=== PATIENT | male | born 1960 | race Caucasian/White ===

== ENCOUNTER 2020-05-23 20:27 | Inpatient (IN) | payer OTHER ==
[2020-05-23] MEDS ORDERED: LACTATED RINGERS SOLUTION 1000 ML INFUS.BAG IV ONE ×2 (20:49→22:25)
[2020-05-23 21:55] LABS: BASO % 0.3 % (0-2.0); HEMATOCRIT 52.2 % (35.4-49); HEMOGLOBIN 17.3 GM/dL (11.7-16.9); MCH 29.5 pg (25.7-33.7); MCHC 33.1 g/dl (32.0-35.9); MONO % 7.7 % (3.8-10.2); PLATELET COUNT 118 K/MM3 (134-434); RBC 5.86 M/mm3 (4.00-5.60); RDW 13.2 % (11.9-15.9); WHITE BLOOD COUNT 4.2 K/mm3 (4.0-10.0)
[2020-05-23 21:57] LABS: CHLORIDE 102 mmol/L (98-107); POTASSIUM 4.1 mmol/L (3.5-5.1); SODIUM 136 mmol/L (136-145)
[2020-05-23 21:59] LABS: CALCIUM 7.6 mg/dL (8.5-10.1)
[2020-05-23 22:00] LABS: ANION GAP 8 MMOL/L (8-16); BLOOD UREA NITROGEN 23.2 mg/dL (7-18); CO2 26 mmol/L (21-32); GLUCOSE,RANDOM 139 mg/dL (74-106)
[2020-05-23 22:03] LABS: CREATININE 1.7 mg/dL (0.55-1.3); SGOT/AST 37 U/L (15-37); SGPT/ALT 33 U/L (13-61)
[2020-05-23 22:04] LABS: TOT PROT 6.5 g/dl (6.4-8.2)
[2020-05-23 22:06] LABS: ALK PHOS 45 U/L (45-117)
[2020-05-23] MEDS ORDERED: DEXAMETHASONE SOD PHOSPHATE 10 MG/1 ML VIAL IVPUSH ONE (22:08)
[2020-05-23 22:24] LABS: VENOUS PCO2 39.9 mmHg (38-52); VENOUS PH 7.368 (7.310-7.410)
[2020-05-23] MEDS ORDERED: DEXAMETHASONE SOD PHOSPHATE 10 MG/1 ML VIAL ONE (22:27)
[2020-05-23 22:30] LABS: BILIRUBIN,TOTAL 0.8 mg/dL (0.2-1); INR 1.09 (0.83-1.09); LDH 212 U/L (87-246); PROTHROMBIN TIME (PATIENT) 13.4 SEC (9.7-13.0)
[2020-05-23 22:33] LABS: ACTIVATED PTT 31.7 SECONDS (25.2-36.5)
[2020-05-23] MEDS ORDERED: ENOXAPARIN NA (PORCINE) 80 MG/0.8 ML DISP.SYRIN SQ SCH (23:00)
[2020-05-24] MEDS ORDERED: ENOXAPARIN NA (PORCINE) 80 MG/0.8 ML DISP.SYRIN SQ SCH (01:45)
[2020-05-24] MEDS ORDERED: ENOXAPARIN NA (PORCINE) 80 MG/0.8 ML DISP.SYRIN SQ ONE (02:50)
[2020-05-24 03:50] LABS: EPI CELLS 6 /uL (0-25.1); HYALINE CASTS 2 /uL (0-3.1); PH,URINE 5.5 (5.0-8.0); URINE APPEARANCE CLEAR; URINE BACTERIA 11 /uL (0-1359); URINE BILIRUBIN NEGATIVE (NEGATIVE); URINE COLOR YELLOW; URINE GLUCOSE (UA) NEGATIVE (NEGATIVE); URINE KETONE NEGATIVE (NEGATIVE); URINE LEUK ESTERASE NEGATIVE (NEGATIVE); URINE NITRITE NEGATIVE (NEGATIVE); URINE PROTEIN 1+ (NEGATIVE); URINE RBC 19 /uL (0-23.9); URINE UROBILINOGEN 0.2 mg/dL (0.2-1.0); URINE WBC 7 /uL (0-25.8)
[2020-05-24 07:51] LABS: BASO % 0.2 % (0-2.0); HEMATOCRIT 48.9 % (35.4-49); HEMOGLOBIN 16.7 GM/dL (11.7-16.9); LYMPH % 29.7 % (8-40); MCH 29.6 pg (25.7-33.7); MCHC 34.2 g/dl (32.0-35.9); MEAN CELL VOLUME 86.7 fl (80-96); MEAN PLT VOLUME 9.6 fl (7.5-11.1); NEUT % 66.1 % (42.8-82.8); PLATELET COUNT 107 K/MM3 (134-434); RBC 5.64 M/mm3 (4.00-5.60); RDW 13.1 % (11.9-15.9); WHITE BLOOD COUNT 2.1 K/mm3 (4.0-10.0)
[2020-05-24 08:08] LABS: POTASSIUM 4.5 mmol/L (3.5-5.1)
[2020-05-24 08:10] LABS: ALBUMIN 2.9 g/dl (3.4-5.0); CALCIUM 8.1 mg/dL (8.5-10.1)
[2020-05-24 08:11] LABS: BLOOD UREA NITROGEN 23.4 mg/dL (7-18)
[2020-05-24 08:14] LABS: CREATININE 1.2 mg/dL (0.55-1.3)
[2020-05-24 08:15] LABS: BILIRUBIN,TOTAL 0.8 mg/dL (0.2-1); TOT PROT 6.4 g/dl (6.4-8.2)
[2020-05-24] MEDS ORDERED: ASCORBIC ACID 500 MG TABLET (FP) ONE (10:49)
[2020-05-24] MEDS ORDERED: DEXAMETHASONE SOD PHOSPHATE 10 MG/1 ML VIAL ONE (10:49)
[2020-05-24] MEDS ORDERED: ZINC SULFATE 220 MG CAPSULE (FP) ONE (10:49)
[2020-05-24] MEDS ORDERED: FAMOTIDINE 20 MG TABLET ONE (10:49)
[2020-05-24] MEDS ORDERED: CHOLECALCIFEROL (VIT D3) 1,000 UNIT (25 MCG) TABLET ONE (10:50)
[2020-05-24] MEDS ORDERED: ENOXAPARIN NA (PORCINE) 40 MG/0.4 ML DISP.SYRIN SQ ONE (10:50)
[2020-05-24] MEDS: ENOXAPARIN NA (PORCINE) 40 MG/0.4 ML DISP.SYRIN SQ SCH (10:56)
[2020-05-24] MEDS: DEXAMETHASONE SOD PHOSPHATE 4 MG/1 ML VIAL IVPUSH SCH (10:56)
[2020-05-24] MEDS: CHOLECALCIFEROL (VIT D3) 1,000 UNIT (25 MCG) TABLET PO SCH (10:57)
[2020-05-24] MEDS: ASCORBIC ACID 500 MG TABLET (FP) PO SCH ×2 (10:57→23:03)
[2020-05-24] MEDS: FAMOTIDINE 20 MG TABLET PO SCH ×2 (10:57→23:03)
[2020-05-24] MEDS: ZINC SULFATE 220 MG CAPSULE (FP) PO SCH (10:57)
[2020-05-24] MEDS: SODIUM CHLORIDE 1,000 ML IV SCH (13:02)
[2020-05-24] MEDS ORDERED: REMDESIVIR 200 MG in SODIUM CHLORIDE 210 ML IVPB ONE (14:00)
[2020-05-24] MEDS ORDERED: CEFTRIAXONE 1 GM/50 ML BAG ONE (16:26)
[2020-05-24] MEDS: CEFTRIAXONE 1 GM in DEXTROSE 5%-WATER - 50 ML IVPB SCH (18:30)
[2020-05-24] MEDS: AZITHROMYCIN IVPB 500 MG/250 ML BAG IVPB SCH (21:29)
[2020-05-24] MEDS ORDERED: HYDROCHLOROTHIAZIDE 12.5 MG CAPSULE (FP) PO SCH ×2 (22:00)
[2020-05-24] MEDS ORDERED: PATIENT'S OWN MEDICATION (NON-FORMULARY) (Hydrochlorothiazide [Hydrochlorothiazide] 12.5 M PO SCH (22:00)
[2020-05-24] MEDS: LABETALOL HCL 200 MG TABLET (FP) PO SCH (23:03)
[2020-05-25 01:27] VITALS: BMI 29.0
[2020-05-25] MEDS: HYDROCHLOROTHIAZIDE 12.5 MG CAPSULE (FP) PO SCH ×2 (06:44→14:06)
[2020-05-25] MEDS: SODIUM CHLORIDE 1,000 ML IV SCH ×2 (06:50→14:00)
[2020-05-25] MEDS ORDERED: LACTATED RINGERS SOLUTION 1,000 ML/1,000 ML INFUS.BAG IV STA (08:41)
[2020-05-25 09:19] LABS: HEMATOCRIT 50.4 % (35.4-49); HEMOGLOBIN 16.8 GM/dL (11.7-16.9); MCH 29.6 pg (25.7-33.7); MCHC 33.3 g/dl (32.0-35.9); MEAN CELL VOLUME 89.1 fl (80-96); MEAN PLT VOLUME 9.6 fl (7.5-11.1); PLATELET COUNT 135 K/MM3 (134-434); RBC 5.65 M/mm3 (4.00-5.60); RDW 13.1 % (11.9-15.9); WHITE BLOOD COUNT 12.8 K/mm3 (4.0-10.0)
[2020-05-25 09:27] LABS: POTASSIUM 4.8 mmol/L (3.5-5.1)
[2020-05-25 09:30] LABS: MAGNESIUM 2.2 mg/dL (1.8-2.4)
[2020-05-25 09:33] LABS: CREATININE 1.3 mg/dL (0.55-1.3); PHOSPHOROUS 3.1 mg/dL (2.5-4.9)
[2020-05-25] MEDS ORDERED: MELATONIN 5 MG TABLETS PO PRN (09:57)
[2020-05-25] MEDS ORDERED: cefTRIAXone SODIUM 1 GM VIAL ONE (10:46)
[2020-05-25] MEDS ORDERED: DEXTROSE 5%-WATER - 50 ML IVPB ONE (10:46)
[2020-05-25] MEDS: FAMOTIDINE 20 MG TABLET PO SCH ×2 (10:48→21:42)
[2020-05-25] MEDS: CHOLECALCIFEROL (VIT D3) 1,000 UNIT (25 MCG) TABLET PO SCH (10:48)
[2020-05-25] MEDS: SPIRONOLACTONE 25 MG TABLET PO SCH (10:48)
[2020-05-25] MEDS: CEFTRIAXONE 1 GM in DEXTROSE 5%-WATER - 50 ML IVPB SCH (10:48)
[2020-05-25] MEDS: LABETALOL HCL 200 MG TABLET (FP) PO SCH ×2 (10:48→21:42)
[2020-05-25] MEDS: ZINC SULFATE 220 MG CAPSULE (FP) PO SCH (10:48)
[2020-05-25] MEDS: AZITHROMYCIN IVPB 500 MG/250 ML BAG IVPB SCH (10:49)
[2020-05-25] MEDS: ENOXAPARIN NA (PORCINE) 40 MG/0.4 ML DISP.SYRIN SQ SCH (10:49)
[2020-05-25] MEDS: DEXAMETHASONE SOD PHOSPHATE 4 MG/1 ML VIAL IVPUSH SCH (10:49)
[2020-05-25] MEDS: ASCORBIC ACID 500 MG TABLET (FP) PO SCH ×2 (10:49→21:42)
[2020-05-25] MEDS ORDERED: ACETAMINOPHEN 325 MG TABLET (FP) PO PRN (12:08)
[2020-05-25] MEDS ORDERED: PT OWN MED DRAWER 7, Y5N ONE (15:03)
[2020-05-25] MEDS: LOSARTAN POTASSIUM 50 MG TABLET PO SCH (15:12)
[2020-05-25] MEDS: REMDESIVIR 100 MG in SODIUM CHLORIDE 230 ML IVPB SCH (17:09)
[2020-05-25 17:53] LABS: EPI CELLS 2 /uL (0-25.1); HYALINE CASTS 0 /uL (0-3.1); PH,URINE 6.5 (5.0-8.0); URINE APPEARANCE CLEAR; URINE BACTERIA 14 /uL (0-1359); URINE BILIRUBIN NEGATIVE (NEGATIVE); URINE COLOR RED; URINE GLUCOSE (UA) NEGATIVE (NEGATIVE); URINE KETONE NEGATIVE (NEGATIVE); URINE LEUK ESTERASE NEGATIVE (NEGATIVE); URINE NITRITE NEGATIVE (NEGATIVE); URINE PROTEIN 1+ (NEGATIVE); URINE RBC 5432 /uL (0-23.9); URINE UROBILINOGEN 0.2 mg/dL (0.2-1.0); URINE WBC 8 /uL (0-25.8)
[2020-05-26] MEDS: HYDROCHLOROTHIAZIDE 12.5 MG CAPSULE (FP) PO SCH ×2 (05:30→15:01)
[2020-05-26 08:59] LABS: HEMATOCRIT 48.4 % (35.4-49); HEMOGLOBIN 16.4 GM/dL (11.7-16.9); MCH 29.9 pg (25.7-33.7); MCHC 33.9 g/dl (32.0-35.9); MEAN CELL VOLUME 88.1 fl (80-96); MEAN PLT VOLUME 9.1 fl (7.5-11.1); PLATELET COUNT 156 K/MM3 (134-434); RDW 13.2 % (11.9-15.9); WHITE BLOOD COUNT 8.5 K/mm3 (4.0-10.0)
[2020-05-26 09:16] LABS: POTASSIUM 4.3 mmol/L (3.5-5.1)
[2020-05-26 09:19] LABS: ALBUMIN 3.2 g/dl (3.4-5.0); CALCIUM 8.1 mg/dL (8.5-10.1)
[2020-05-26 09:20] LABS: BLOOD UREA NITROGEN 23.8 mg/dL (7-18); MAGNESIUM 2.6 mg/dL (1.8-2.4)
[2020-05-26 09:23] LABS: CREATININE 1.2 mg/dL (0.55-1.3); PHOSPHOROUS 3.3 mg/dL (2.5-4.9)
[2020-05-26 09:24] LABS: BILIRUBIN,TOTAL 0.8 mg/dL (0.2-1); TOT PROT 6.7 g/dl (6.4-8.2)
[2020-05-26] MEDS ORDERED: DEXTROSE 5%-WATER - 50 ML IVPB ONE (10:16)
[2020-05-26] MEDS ORDERED: cefTRIAXone SODIUM 1 GM VIAL ONE (10:16)
[2020-05-26] MEDS: DEXAMETHASONE SOD PHOSPHATE 4 MG/1 ML VIAL IVPUSH SCH (10:25)
[2020-05-26] MEDS: CEFTRIAXONE 1 GM in DEXTROSE 5%-WATER - 50 ML IVPB SCH (10:29)
[2020-05-26] MEDS: SPIRONOLACTONE 25 MG TABLET PO SCH (10:29)
[2020-05-26] MEDS: FAMOTIDINE 20 MG TABLET PO SCH ×2 (10:30→21:57)
[2020-05-26] MEDS: LABETALOL HCL 200 MG TABLET (FP) PO SCH ×2 (10:30→21:57)
[2020-05-26] MEDS: ZINC SULFATE 220 MG CAPSULE (FP) PO SCH (10:30)
[2020-05-26] MEDS: LOSARTAN POTASSIUM 50 MG TABLET PO SCH (10:30)
[2020-05-26] MEDS: CHOLECALCIFEROL (VIT D3) 1,000 UNIT (25 MCG) TABLET PO SCH (10:30)
[2020-05-26] MEDS: ASCORBIC ACID 500 MG TABLET (FP) PO SCH ×2 (10:30→21:57)
[2020-05-26] MEDS: AZITHROMYCIN IVPB 500 MG/250 ML BAG IVPB SCH (11:40)
[2020-05-26] MEDS: SODIUM CHLORIDE 1,000 ML IV SCH (11:45)
[2020-05-26] MEDS: ENOXAPARIN NA (PORCINE) 40 MG/0.4 ML DISP.SYRIN SQ SCH (12:00)
[2020-05-26] MEDS: REMDESIVIR 100 MG in SODIUM CHLORIDE 230 ML IVPB SCH (15:02)
[2020-05-26 18:24] LABS: EPI CELLS 1 /uL (0-25.1); HYALINE CASTS 0 /uL (0-3.1); URINE APPEARANCE CLEAR; URINE BACTERIA 19 /uL (0-1359); URINE BILIRUBIN NEGATIVE (NEGATIVE); URINE COLOR YELLOW; URINE GLUCOSE (UA) NEGATIVE (NEGATIVE); URINE KETONE NEGATIVE (NEGATIVE); URINE LEUK ESTERASE NEGATIVE (NEGATIVE); URINE NITRITE NEGATIVE (NEGATIVE); URINE PROTEIN NEGATIVE (NEGATIVE); URINE RBC 307 /uL (0-23.9); URINE UROBILINOGEN 0.2 mg/dL (0.2-1.0); URINE WBC 3 /uL (0-25.8)
[2020-05-27] MEDS: SODIUM CHLORIDE 1,000 ML IV SCH (03:22)
[2020-05-27] MEDS: HYDROCHLOROTHIAZIDE 12.5 MG CAPSULE (FP) PO SCH ×2 (06:12→14:24)
[2020-05-27 08:26] LABS: HEMATOCRIT 46.9 % (35.4-49); HEMOGLOBIN 15.9 GM/dL (11.7-16.9); MCH 29.8 pg (25.7-33.7); MCHC 33.8 g/dl (32.0-35.9); MEAN PLT VOLUME 9.6 fl (7.5-11.1); RBC 5.33 M/mm3 (4.00-5.60); RDW 12.9 % (11.9-15.9); WHITE BLOOD COUNT 8.9 K/mm3 (4.0-10.0)
[2020-05-27] MEDS ORDERED: PT OWN MED DRAWER 7, Y5N ONE (08:33)
[2020-05-27] MEDS ORDERED: DEXTROSE 5%-WATER - 50 ML IVPB ONE (08:34)
[2020-05-27] MEDS ORDERED: cefTRIAXone SODIUM 1 GM VIAL ONE (08:34)
[2020-05-27 08:50] LABS: POTASSIUM 4.7 mmol/L (3.5-5.1)
[2020-05-27 08:54] LABS: ALBUMIN 2.9 g/dl (3.4-5.0); BLOOD UREA NITROGEN 24.8 mg/dL (7-18); CALCIUM 8.3 mg/dL (8.5-10.1); MAGNESIUM 2.5 mg/dL (1.8-2.4)
[2020-05-27 08:57] LABS: CREATININE 1.1 mg/dL (0.55-1.3); PHOSPHOROUS 3.3 mg/dL (2.5-4.9)
[2020-05-27 08:58] LABS: BILIRUBIN,TOTAL 0.8 mg/dL (0.2-1); TOT PROT 6.4 g/dl (6.4-8.2)
[2020-05-27] MEDS: CEFTRIAXONE 1 GM in DEXTROSE 5%-WATER - 50 ML IVPB SCH (09:37)
[2020-05-27] MEDS: CHOLECALCIFEROL (VIT D3) 1,000 UNIT (25 MCG) TABLET PO SCH (09:38)
[2020-05-27] MEDS: LABETALOL HCL 200 MG TABLET (FP) PO SCH ×2 (09:38→21:46)
[2020-05-27] MEDS: SPIRONOLACTONE 25 MG TABLET PO SCH (09:38)
[2020-05-27] MEDS: ZINC SULFATE 220 MG CAPSULE (FP) PO SCH (09:38)
[2020-05-27] MEDS: DEXAMETHASONE SOD PHOSPHATE 4 MG/1 ML VIAL IVPUSH SCH (09:39)
[2020-05-27] MEDS: LOSARTAN POTASSIUM 50 MG TABLET PO SCH (09:39)
[2020-05-27] MEDS: ASCORBIC ACID 500 MG TABLET (FP) PO SCH ×2 (09:48→21:46)
[2020-05-27] MEDS: FAMOTIDINE 20 MG TABLET PO SCH ×2 (09:48→21:46)
[2020-05-27] MEDS: ENOXAPARIN NA (PORCINE) 40 MG/0.4 ML DISP.SYRIN SQ SCH (09:56)
[2020-05-27] MEDS: AZITHROMYCIN IVPB 500 MG/250 ML BAG IVPB SCH (10:42)
[2020-05-27] MEDS: CODEINE SO4 30 MG TABLET PO PRN (10:45)
[2020-05-27 11:15] LABS: PLATELET COUNT 163 K/MM3 (134-434)
[2020-05-27] MEDS: REMDESIVIR 100 MG in SODIUM CHLORIDE 230 ML IVPB SCH (13:23)
[2020-05-28] MEDS: HYDROCHLOROTHIAZIDE 12.5 MG CAPSULE (FP) PO SCH ×2 (06:11→15:28)
[2020-05-28] MEDS: DEXAMETHASONE SOD PHOSPHATE 4 MG/1 ML VIAL IVPUSH SCH (11:45)
[2020-05-28] MEDS: AZITHROMYCIN IVPB 500 MG/250 ML BAG IVPB SCH (11:45)
[2020-05-28] MEDS: CODEINE SO4 30 MG TABLET PO PRN (11:46)
[2020-05-28] MEDS: LABETALOL HCL 200 MG TABLET (FP) PO SCH ×2 (11:46→21:31)
[2020-05-28] MEDS: CHOLECALCIFEROL (VIT D3) 1,000 UNIT (25 MCG) TABLET PO SCH (11:46)
[2020-05-28] MEDS: LOSARTAN POTASSIUM 50 MG TABLET PO SCH (11:46)
[2020-05-28] MEDS: ZINC SULFATE 220 MG CAPSULE (FP) PO SCH (11:46)
[2020-05-28] MEDS: FAMOTIDINE 20 MG TABLET PO SCH ×2 (11:47→21:32)
[2020-05-28] MEDS: SPIRONOLACTONE 25 MG TABLET PO SCH (11:47)
[2020-05-28] MEDS: ENOXAPARIN NA (PORCINE) 40 MG/0.4 ML DISP.SYRIN SQ SCH (11:47)
[2020-05-28] MEDS: ASCORBIC ACID 500 MG TABLET (FP) PO SCH ×2 (11:47→21:31)
[2020-05-28] MEDS: REMDESIVIR 100 MG in SODIUM CHLORIDE 230 ML IVPB SCH (15:28)
[2020-05-28 16:07] LABS: MYCOPLASMA PNEUMONIAE,IG G AB <100 U/mL (0-99); MYCOPLASMA PNEUMONIAE,IGM AB <770 U/mL (0-769)
[2020-05-29 02:02] LABS: ALLENS TEST POSITIVE; ARTERIAL BLD GAS O2 SATURATION 96.5 mmHg (95-98); ARTERIAL BLOOD GAS BASE EXCESS -2.8 mmol/L (-2-2); ARTERIAL BLOOD GAS PO2 81.3 mmHg (80-100); ARTERIAL BLOOD GAS pH 7.443 (7.350-7.450)
[2020-05-29] MEDS: HYDROCHLOROTHIAZIDE 12.5 MG CAPSULE (FP) PO SCH ×3 (06:05→14:58)
[2020-05-29 10:08] LABS: HEMATOCRIT 52.3 % (35.4-49); LYMPH % 6.7 % (8-40); MCHC 34.4 g/dl (32.0-35.9); MEAN CELL VOLUME 87.3 fl (80-96); MEAN PLT VOLUME 8.7 fl (7.5-11.1); MONO % 11.8 % (3.8-10.2); NEUT % 81.5 % (42.8-82.8); PLATELET COUNT 276 K/MM3 (134-434); RDW 13.3 % (11.9-15.9); WHITE BLOOD COUNT 10.7 K/mm3 (4.0-10.0)
[2020-05-29 10:37] LABS: ALBUMIN 3.1 g/dl (3.4-5.0); BLOOD UREA NITROGEN 44.5 mg/dL (7-18); CALCIUM 8.8 mg/dL (8.5-10.1)
[2020-05-29 10:41] LABS: CREATININE 1.2 mg/dL (0.55-1.3)
[2020-05-29 10:42] LABS: BILIRUBIN,TOTAL 1.4 mg/dL (0.2-1); TOT PROT 6.9 g/dl (6.4-8.2)
[2020-05-29] MEDS: AZITHROMYCIN IVPB 500 MG/250 ML BAG IVPB SCH (11:12)
[2020-05-29] MEDS: ZINC SULFATE 220 MG CAPSULE (FP) PO SCH (11:13)
[2020-05-29] MEDS: LOSARTAN POTASSIUM 50 MG TABLET PO SCH (11:13)
[2020-05-29] MEDS: FAMOTIDINE 20 MG TABLET PO SCH ×2 (11:13→21:49)
[2020-05-29] MEDS: CHOLECALCIFEROL (VIT D3) 1,000 UNIT (25 MCG) TABLET PO SCH (11:13)
[2020-05-29] MEDS: SPIRONOLACTONE 25 MG TABLET PO SCH (11:13)
[2020-05-29] MEDS: CODEINE SO4 30 MG TABLET PO PRN (11:13)
[2020-05-29] MEDS: ASCORBIC ACID 500 MG TABLET (FP) PO SCH ×2 (11:13→21:49)
[2020-05-29] MEDS: ENOXAPARIN NA (PORCINE) 40 MG/0.4 ML DISP.SYRIN SQ SCH (11:13)
[2020-05-29] MEDS: LABETALOL HCL 200 MG TABLET (FP) PO SCH ×3 (11:14→22:18)
[2020-05-29] MEDS: DEXAMETHASONE SOD PHOSPHATE 4 MG/1 ML VIAL IVPUSH SCH (11:14)
[2020-05-29 12:36] LABS: ANISOCYTOSIS 0; HELMET CELLS 0; HOWELL-JOLLY BODIES 0; MACROCYTOSIS 0; OVALOCYTE 0; PLATELET ESTIMATE NORMAL; ROULEAU 0; SICKELED CELLS 0; TARGET CELLS 0; TEAR DROP CELLS 0; TOXIC GRANULATION 0
[2020-05-29] MEDS ORDERED: SODIUM CHLORIDE 1,000 ML IV ONE (19:21)
[2020-05-30] MEDS: HYDROCHLOROTHIAZIDE 12.5 MG CAPSULE (FP) PO SCH ×2 (06:18→15:33)
[2020-05-30 08:39] LABS: HEMATOCRIT 51.5 % (35.4-49); HEMOGLOBIN 17.7 GM/dL (11.7-16.9); MCH 29.9 pg (25.7-33.7); MCHC 34.4 g/dl (32.0-35.9); MEAN CELL VOLUME 86.9 fl (80-96); MEAN PLT VOLUME 8.9 fl (7.5-11.1); PLATELET COUNT 303 K/MM3 (134-434); RBC 5.93 M/mm3 (4.00-5.60); RDW 13.1 % (11.9-15.9); WHITE BLOOD COUNT 12.3 K/mm3 (4.0-10.0)
[2020-05-30 08:53] LABS: POTASSIUM 4.9 mmol/L (3.5-5.1)
[2020-05-30 08:55] LABS: CALCIUM 8.5 mg/dL (8.5-10.1)
[2020-05-30 08:57] LABS: ALBUMIN 3.1 g/dl (3.4-5.0); BLOOD UREA NITROGEN 43.7 mg/dL (7-18); MAGNESIUM 2.4 mg/dL (1.8-2.4)
[2020-05-30 08:59] LABS: CREATININE 1.2 mg/dL (0.55-1.3); PHOSPHOROUS 4.2 mg/dL (2.5-4.9)
[2020-05-30 09:01] LABS: BILIRUBIN,TOTAL 1.9 mg/dL (0.2-1); TOT PROT 6.7 g/dl (6.4-8.2)
[2020-05-30] MEDS: ENOXAPARIN NA (PORCINE) 40 MG/0.4 ML DISP.SYRIN SQ SCH (09:20)
[2020-05-30] MEDS: DEXAMETHASONE SOD PHOSPHATE 4 MG/1 ML VIAL IVPUSH SCH (09:20)
[2020-05-30] MEDS: LOSARTAN POTASSIUM 50 MG TABLET PO SCH (09:22)
[2020-05-30] MEDS: LABETALOL HCL 200 MG TABLET (FP) PO SCH (09:23)
[2020-05-30] MEDS: SPIRONOLACTONE 25 MG TABLET PO SCH (09:23)
[2020-05-30] MEDS: ZINC SULFATE 220 MG CAPSULE (FP) PO SCH (09:24)
[2020-05-30] MEDS: FAMOTIDINE 20 MG TABLET PO SCH (09:24)
[2020-05-30] MEDS: ASCORBIC ACID 500 MG TABLET (FP) PO SCH (09:24)
[2020-05-30] MEDS: CHOLECALCIFEROL (VIT D3) 1,000 UNIT (25 MCG) TABLET PO SCH (09:24)
[2020-05-30 09:45] LABS: ERYTHROCYTE SEDIMENTATION RATE 5 mm/hr (0-20)
[2020-05-30 18:46] VITALS: BP 113/69; PULSE 71; TEMP 97.9
== END 2020-05-30 20:02 | disposition home or self-care (01) | DRG 137 ==
LOC: JER 20:27 → JERBED 05-24 01:42 → J5S 05-24 18:58
PROVIDERS: ADMIT Internal Medicine; ATTEND Student in an Organized Health Care Education/Training Program
PROC: XW033E5 Introduction of Remdesivir Anti-infective into Peripheral Vein, Percutaneous Approach, New Technology Group 5 (ICD-10-PCS; principal; 2020-05-25)
PROC: XW13325 Transfusion of Convalescent Plasma (Nonautologous) into Peripheral Vein, Percutaneous Approach, New Technology Group 5 (ICD-10-PCS; 2020-05-25)
DX: U07.1 COVID-19 (principal); I10 Essential (primary) hypertension; D72.829 Elevated white blood cell count, unspecified; D72.819 Decreased white blood cell count, unspecified; A08.39 Other viral enteritis; J12.89 Other viral pneumonia; E87.2 Acidosis; N17.9 Acute kidney failure, unspecified; I95.9 Hypotension, unspecified; J96.01 Acute respiratory failure with hypoxia; R31.9 Hematuria, unspecified; N40.0 Benign prostatic hyperplasia without lower urinary tract symptoms; K57.90 Diverticulosis of intestine, part unspecified, without perforation or abscess without bleeding; E86.0 Dehydration; E87.1 Hypo-osmolality and hyponatremia
CPT/HCPCS: 36415; 36430; 36600; 71045-TC-FY; 71250-TC; 74176-TC; 76775-TC; 76856-TC; 80048; 80053; 81003; 82550; 82728; 82803; 83605; 83615; 83735; 84100; 84484; 85025; 85027; 85379; 85610; 85651; 85730; 86140; 86738; 86850; 86900; 86901; 87040; 87086; 87804; 87899; 93005; 93010; 94761; 99285-25; C9399; C9803; J1100; P9017; U0003